=== PATIENT | male | born 1945 | race Caucasian/White ===

== ENCOUNTER 2021-02-26 14:21 | Inpatient (IN) ==
[2021-02-26 14:57] LABS: Basophils % 0.3 %; Eosinophils % 0.1 %; Red Blood Count 7.08 M/mcL (4.19-5.50)
[2021-02-26 14:59] LABS: Hematocrit 47.9 % (37.5-50.1); Hemoglobin 15.5 g/dL (12.9-16.9); Immature Granulocytes % 1.3 % (0-4); Lymphocytes % 7.2 %; Mean Corpuscular HGB Conc 32.4 g/dL (31.6-35.5); Mean Corpuscular Hemoglobin 21.9 pg (28.0-33.3); Mean Corpuscular Volume 67.7 fL (83.0-100.0); Monocytes # 1.5 K/mcL (0.0-1.3); Monocytes % 10.8 %; Neutrophils # 11.2 K/mcL (1.6-8.9); Platelet Count 156 K/mcL (140-400); Red Cell Distribution Width 18.2 % (11.5-14.5); Segmented Neutrophils % 80.3 %; White Blood Count 13.9 K/mcL (4.3-11.1)
[2021-02-26 15:07] LABS: Bilirubin,Urine Negative (Negative); Blood,Urine Large (Negative); Clarity,Urine Clear (Clear); Color,Urine Yellow (Yellow); Glucose,Urine (UA) Normal (Normal); Ketones,Urine Negative (Negative); Leukocyte Esterase,Urine Moderate (Negative); Mucus,Urine Few per lpf (None-Few); Nitrite,Urine Negative (Negative); PH,Urine 5.5 pH Units (5.0-8.0); Protein,Urine 70 mg/dL (Neg-Trace); RBC,Urine 50-100 per hpf (0-3); Specific Gravity,Urine > 1.030 (1.010-1.025); Squamous Epithelial Cell,Urine Few per hpf (None-Few); WBC,Urine 50-100 per hpf (0-3)
[2021-02-26] MEDS ORDERED: cefTRIAXone 1,000 MG in Water for inj. (sterile) 10 ML IVP ONE (15:23)
[2021-02-26 15:26] LABS: BUN/Creatinine Ratio 21 (6-26); Blood Urea Nitrogen 20 mg/dL (8-23); Calcium 9.6 mg/dL (8.6-10.3); Carbon Dioxide 24 mEq/L (23-29); Chloride 101 mEq/L (98-107); Glucose 159 mg/dL (70-105); Osmolality,Calculated 282 (280-300); Potassium 4.4 mEq/L (3.5-5.1); Sodium 133 mEq/L (136-145); eGFR For African Americans > 60 (> 60); eGFR For Non-African Americans > 60 (> 60)
[2021-02-26] MEDS ORDERED: Ketorolac 15 MG/ML VIAL IVP ONE (15:30)
[2021-02-26 15:54] LABS: Microcytosis Present (Not Present)
[2021-02-26] MEDS: Ringers Solution, Lactated 1,000 ML IVC SCH ×3 (15:59→22:50)
[2021-02-26 16:08] LABS: Alanine Aminotransferase 28 Units/L (7-52); Albumin 3.9 g/dL (3.5-5.7); Albumin/Globulin Ratio 1.4 (1.1-2.2); Alkaline Phosphatase 67 Units/L (34-104); Aspartate Amino Transferase 25 Units/L (13-39); Bilirubin,Direct 0.2 mg/dL (0.0-0.2); Bilirubin,Indirect 0.8 mg/dL (0.0-1.0); Globulin 2.7 g/dL (2.4-3.5); Lipase 25 Units/L (11-82); Phosphorous 3.3 mg/dL (2.7-4.5); Total Protein 6.6 g/dL (6.4-8.9)
[2021-02-26 16:11] LABS: Troponin I 0.06 ng/mL (< 0.04)
[2021-02-26 16:29] LABS: INR 1.3; Prothrombin Time 14.4 Seconds (9.4-12.1)
[2021-02-26 16:32] LABS: Activated Partial Thrombo Time 29.8 Seconds (26.0-36.0)
[2021-02-26] MEDS ORDERED: Naloxone 0.4 MG/ML INJ IVP PRN (18:09)
[2021-02-26] MEDS ORDERED: Ondansetron 4 MG/2 ML VIAL IVP PRN (18:09)
[2021-02-26] MEDS ORDERED: traZODone 50 MG TABLET PO PRN (18:12)
[2021-02-26] MEDS ORDERED: Nicotine 2 MG GUM BC PRN (20:00)
[2021-02-26] MEDS ORDERED: Dextrose Gel 15 GM/37.5 ML TUBE PO PRN ×2 (20:08)
[2021-02-26] MEDS ORDERED: *HR* Dextrose 50 % in Water (Vial) 50 ML VIAL IVP PRN (20:08)
[2021-02-26] MEDS ORDERED: D5% in Water 1,000 ML IVC PRN (20:08)
[2021-02-26] MEDS ORDERED: Nicotine 21 MG PATCH.TD24 TD SCH (20:15)
[2021-02-26] MEDS ORDERED: Perflutren Lipid Microsphere 1.3 ML in 0.9 % Sodium Chloride 8.7 ML IVP PRN (20:20)
[2021-02-26] MEDS ORDERED: Ipratropium/Albuterol Neb 3 ML IH PRN (21:34)
[2021-02-26] MEDS: Sennosides/Docusate Sodium TABLET PO SCH (21:52)
[2021-02-26] MEDS: Lactobacillus 1 EACH CAP.SPRINK PO SCH (21:52)
[2021-02-27] MEDS ORDERED: Nitroglycerin 0.4 MG TAB.SUBL SL PRN (00:37)
[2021-02-27] MEDS ORDERED: Nitroglycerin 0.4 MG TAB.SUBL SL ONE (00:40)
[2021-02-27] MEDS ORDERED: *HR* Heparin 5,000 UNIT/ML VIAL IVP ONE (01:24)
[2021-02-27] MEDS ORDERED: *HR* Heparin 5,000 UNIT/ML VIAL IVP PRN ×2 (01:24)
[2021-02-27] MEDS ORDERED: Heparin 25,000UNIT/250ML 1/2NS 25,000 UNIT/250 ML IV.SOLN IVC SCH (01:30)
[2021-02-27 02:11] LABS: Hemoglobin 13.2 g/dL (12.9-16.9); Red Cell Distribution Width 17.1 % (11.5-14.5)
[2021-02-27 02:13] LABS: Hematocrit 41.2 % (37.5-50.1); Immature Platelets 12.2 % (1.1-6.1); Mean Corpuscular Volume 68.7 fL (83.0-100.0); Platelet Count 129 K/mcL (140-400); White Blood Count 10.3 K/mcL (4.3-11.1)
[2021-02-27 02:16] LABS: Chol/HDL Ratio 6.9 (0-4.9)
[2021-02-27 02:21] LABS: BUN/Creatinine Ratio 24 (6-26); Blood Urea Nitrogen 18 mg/dL (8-23); Calcium 9.1 mg/dL (8.6-10.3); Carbon Dioxide 24 mEq/L (23-29); Chloride 105 mEq/L (98-107); Glucose 108 mg/dL (70-105); Osmolality,Calculated 286 (280-300); Potassium 4.3 mEq/L (3.5-5.1); Sodium 137 mEq/L (136-145); eGFR For African Americans > 60 (> 60); eGFR For Non-African Americans > 60 (> 60)
[2021-02-27 02:23] LABS: Heparin anti-factor XA UFH 0.04 IU/mL (0.30-0.70)
[2021-02-27 02:24] LABS: INR 1.2; Prothrombin Time 14.3 Seconds (9.4-12.1)
[2021-02-27 02:30] LABS: Thyroid Stimulating Hormone 2.787 mcIU/mL (0.340-5.600)
[2021-02-27] MEDS ORDERED: Nicotine 21 MG PATCH.TD24 TD SCH (07:00)
[2021-02-27 07:47] LABS: Acinetobacter baumannii by PCR Not Detected (Not Detect); Candida albicans by PCR Not Detected (Not Detect); Candida glabrata by PCR Not Detected (Not Detect); Candida krusei by PCR Not Detected (Not Detect); Candida parapsilosis by PCR Not Detected (Not Detect); Candida tropicalis by PCR Not Detected (Not Detect); Enterobacter cloacae Cmplx PCR Not Detected (Not Detect); Enterococcus by PCR Not Detected (Not Detect); Escherichia coli by PCR Not Detected (Not Detect); Klebsiella oxytoca by PCR Not Detected (Not Detect); Klebsiella pneumoniae by PCR Not Detected (Not Detect); Proteus by PCR DETECTED (Not Detect); Pseudomonas aeruginosa by PCR Not Detected (Not Detect); Serratia marcescens by PCR Not Detected (Not Detect); Staphylococcus aureus by PCR Not Detected (Not Detect); Staphylococcus by PCR Not Detected (Not Detect); Streptococcus agalactiae(B)PCR Not Detected (Not Detect); Streptococcus by PCR Not Detected (Not Detect); Streptococcus pneumoniae PCR Not Detected (Not Detect); Streptococcus pyogenes (A) PCR Not Detected (Not Detect)
[2021-02-27] MEDS ORDERED: Iron Sucrose Complex 400 MG in 0.9 % Sodium Chloride 250 ML IVPB ONE (07:51)
[2021-02-27 08:08] LABS: Estimated Average Glucose 140 mg/dl; Hemoglobin A1C 6.5 %
[2021-02-27] MEDS: Insulin LISPRO 300 UNITS/3 ML VIAL SUBQ SCH ×3 (08:59→15:03)
[2021-02-27] MEDS ORDERED: Loratadine 10 MG TABLET PO SCH (09:00)
[2021-02-27] MEDS ORDERED: Isosorbide MONOnitrate (24 HR) 60 MG TAB.ER.24H PO SCH (09:00)
[2021-02-27] MEDS ORDERED: Metoprolol XL (24 HR) Succ 25 MG TAB.ER.24H PO SCH (09:00)
[2021-02-27] MEDS ORDERED: Metoprolol XL (24 HR) Succ 50 MG TAB.ER.24H PO SCH (09:00)
[2021-02-27] MEDS ORDERED: Aspirin 81 MG TAB.CHEW PO SCH (09:00)
[2021-02-27] MEDS ORDERED: cefTRIAXone 1,000 MG in 0.9 % Sodium Chloride Mini Bag 100 ML IVPB SCH (09:00)
[2021-02-27] MEDS ORDERED: cefTRIAXone 2,000 MG in 0.9 % Sodium Chloride Mini Bag 100 ML IVPB SCH (10:00)
[2021-02-27] MEDS: Sennosides/Docusate Sodium TABLET PO SCH ×2 (12:09→19:49)
[2021-02-27] MEDS: Lactobacillus 1 EACH CAP.SPRINK PO SCH ×2 (12:09→19:49)
[2021-02-27] MEDS ORDERED: *HR* Propofol 200 MG/20 ML VIAL IVP ONE ×2 (14:45→15:19)
[2021-02-27] MEDS ORDERED: *HR* FentaNYL (PF) 100 MCG/2 ML VIAL ONE ×2 (14:45→15:19)
[2021-02-27] MEDS ORDERED: Lidocaine -MPF 2% 2 ML VIAL ONE ×2 (14:45→15:20)
[2021-02-27] MEDS ORDERED: Isovue-300 50ML VIAL ONE (15:07)
[2021-02-27] MEDS ORDERED: Promethazine 6.25 MG in Water for inj. (sterile) 20 ML IVPB PRN (15:17)
[2021-02-27] MEDS ORDERED: Ondansetron 4 MG/2 ML VIAL IVP PRN ×2 (15:17→16:31)
[2021-02-27] MEDS ORDERED: Morphine Sulfate 2 MG/ML SYRINGE IVP PRN (15:17)
[2021-02-27] MEDS ORDERED: Ondansetron 4 MG/2 ML VIAL ONE (15:20)
[2021-02-27] MEDS ORDERED: *HR* HYDROmorphone PF 0.5 MG/0.5 ML SYRINGE IVP PRN (15:46)
[2021-02-27] MEDS ORDERED: *HR* Dextrose 50 % in Water (Vial) 50 ML VIAL IVP PRN (16:31)
[2021-02-27] MEDS ORDERED: Naloxone 0.4 MG/ML INJ IVP PRN (16:31)
[2021-02-27] MEDS ORDERED: Dextrose Gel 15 GM/37.5 ML TUBE PO PRN ×2 (16:31)
[2021-02-27] MEDS ORDERED: Ipratropium/Albuterol Neb 3 ML IH PRN (16:31)
[2021-02-27] MEDS ORDERED: Perflutren Lipid Microsphere 1.3 ML in 0.9 % Sodium Chloride 8.7 ML IVP PRN (16:31)
[2021-02-27] MEDS ORDERED: traZODone 50 MG TABLET PO PRN (16:31)
[2021-02-27] MEDS ORDERED: D5% in Water 1,000 ML IVC PRN (16:31)
[2021-02-27] MEDS ORDERED: Nicotine 2 MG GUM BC PRN (16:31)
[2021-02-27] MEDS: *HR* Heparin 5,000 UNIT/ML VIAL SQ SCH (17:19)
[2021-02-28] MEDS: *HR* Heparin 5,000 UNIT/ML VIAL SQ SCH (05:04)
[2021-02-28 05:13] LABS: Basophils % 0.2 %; Eosinophils % 0.1 %; Mean Corpuscular Hemoglobin 21.4 pg (28.0-33.3); Red Cell Distribution Width 17.2 % (11.5-14.5)
[2021-02-28 05:15] LABS: Hematocrit 42.7 % (37.5-50.1); Hemoglobin 12.9 g/dL (12.9-16.9); Immature Granulocytes % 0.5 % (0-4); Immature Platelets 14.9 % (1.1-6.1); Lymphocytes # 1.7 K/mcL (0.6-4.6); Lymphocytes % 18.2 %; Mean Corpuscular HGB Conc 30.2 g/dL (31.6-35.5); Mean Corpuscular Volume 70.7 fL (83.0-100.0); Monocytes # 0.9 K/mcL (0.0-1.3); Monocytes % 9.8 %; Neutrophils # 6.6 K/mcL (1.6-8.9); Platelet Count 120 K/mcL (140-400); Red Blood Count 6.04 M/mcL (4.19-5.50); Segmented Neutrophils % 71.2 %; White Blood Count 9.3 K/mcL (4.3-11.1)
[2021-02-28 05:31] LABS: BUN/Creatinine Ratio 25 (6-26); Blood Urea Nitrogen 16 mg/dL (8-23); Carbon Dioxide 29 mEq/L (23-29); Chloride 104 mEq/L (98-107); Glucose 161 mg/dL (70-105); Magnesium 2.1 mg/dL (1.6-2.6); Osmolality,Calculated 293 (280-300); Phosphorous 3.7 mg/dL (2.7-4.5); Potassium 4.5 mEq/L (3.5-5.1); Sodium 139 mEq/L (136-145); eGFR For African Americans > 60 (> 60); eGFR For Non-African Americans > 60 (> 60)
[2021-02-28] MEDS ORDERED: Nicotine 21 MG PATCH.TD24 TD SCH (07:00)
[2021-02-28 07:43] VITALS: BP 148/70; PULSE 54; TEMP 97.6
[2021-02-28] MEDS: Lactobacillus 1 EACH CAP.SPRINK PO SCH (07:48)
[2021-02-28] MEDS: Sennosides/Docusate Sodium TABLET PO SCH (07:48)
[2021-02-28] MEDS: Insulin LISPRO 300 UNITS/3 ML VIAL SUBQ SCH ×2 (07:59→13:36)
[2021-02-28] MEDS ORDERED: (Budesonide [Entocort Ec] 3 MG Capdr...Er) PO SCH ×2 (09:00)
[2021-02-28] MEDS ORDERED: Metoprolol XL (24 HR) Succ 50 MG TAB.ER.24H PO SCH (09:00)
[2021-02-28] MEDS ORDERED: Multivit/Ca/Min/Fe/FA 1 TAB TABLET PO SCH (09:00)
[2021-02-28] MEDS ORDERED: Loratadine 10 MG TABLET PO SCH (09:00)
[2021-02-28] MEDS ORDERED: amLODIPine 5 MG TABLET PO SCH (09:00)
[2021-02-28] MEDS ORDERED: cefTRIAXone 2,000 MG in 0.9 % Sodium Chloride Mini Bag 100 ML IVPB SCH (10:00)
[2021-02-28 10:13] VITALS: O2SAT 92
[2021-03-06 17:34] LABS: Calculi Mass 53 mg
== END 2021-02-28 14:02 | disposition home or self-care (01) | DRG 871 ==
LOC: SUATTDRO → EMEROOARM 14:21 → 2ANU 14:21 → SUATTDRO 18:21 → 2ANU 19:22
PROVIDERS: ADMIT Internal Medicine; ATTEND Internal Medicine